=== PATIENT | male | born 1955 | race Caucasian/White ===

== ENCOUNTER 2023-01-05 08:15 | Outpatient (CLI) | payer MEDICARE, SELFPAY | END 2023-01-05 08:16 | disposition home or self-care (01) | LOC: NFLDREF 01-06 03:02 | PROVIDERS: PCP Family Medicine; Referring Provider Family Medicine; Visit Provider Family Medicine | DX: Z00.00 Encounter for general adult medical examination without abnormal findings (principal); E78.5 Hyperlipidemia, unspecified | CPT/HCPCS: 80053; 80061 ==

== ENCOUNTER 2023-09-08 13:32 | Outpatient (CLI) | payer MEDICARE, SELFPAY ==
--- NOTE | 2023-09-08 13:45 | CRLHL7_ITS ---
For Patients: As a result of the Century Cures Act, medical imaging exams and procedure reports are released immediately into your electronic medical record. You may view this report before your referring provider. If you have questions, please contact your health care provider. INDICATION: Hip pain. COMPARISON: None. TECHNIQUE: Coronal T1 and PD fat-sat axial T1 pelvis with axial, coronal and sagittal PD fat-sat small field right hip sequences. FINDINGS: Right hip: No fracture, bone lesion or avascular necrosis. Uniform cartilage. Shallow small subchondral cysts at the outer acetabular margin may be from occult fissuring. Synovial herniation pit anterior femoral head neck junction. Mild aspherical fullness at the head neck junction for CAM type impingement. Within limitations of a non arthrogram study no definitive labral tearing is identified. No periarticular fluid collection of significance. - Pelvis: Small synovial herniation pit on the left and mild CAM type impingement morphology similar to the right. Note significant degenerative or inflammatory change appreciated in the left hip. No fracture or bone lesion in the pelvis. Sacroiliac joints and the symphysis pubis are normal. Intact hamstrings. IMPRESSION: Mild CAM type impingement morphology bilaterally. 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 Dictated by Toni Lechuga MD @ 09/09/2023 4:25:50 PM (Electronically Signed)
== END 2023-09-08 13:33 | disposition home or self-care (01) ==
LOC: MRI 13:32
PROVIDERS: PCP Family Medicine; Visit Provider Family Medicine
DX: M25.551 Pain in right hip (principal); S76.311A Strain of muscle, fascia and tendon of the posterior muscle group at thigh level, right thigh, initial encounter; M79.604 Pain in right leg
CPT/HCPCS: 73721

== ENCOUNTER 2023-10-06 15:39 | Outpatient (CLI) | payer MEDICARE, SELFPAY ==
--- NOTE | 2023-10-06 16:00 | CRLHL7_ITS ---
For Patients: As a result of the Century Cures Act, medical imaging exams and procedure reports are released immediately into your electronic medical record. You may view this report before your referring provider. If you have questions, please contact your health care provider. INDICATION: right testicle pain x 1 month COMPARISON: none TECHNIQUE: Gamez scale imaging was performed of the scrotum. In addition color Doppler and spectral Doppler analysis was performed of the testes. FINDINGS: The testes demonstrate normal arterial and venous blood flow on color Doppler and spectral Doppler analysis. The testes have uniform echogenicity with no evidence of a suspicious mass or area of inflammation. The right testis measures 4.6 x 2.2 x 3.3 cm in size and the left testis measures 4.5 x 2.0 x 3.1 cm. The epididymis appears normal bilaterally. No varicocele. Small bilateral hydroceles noted. IMPRESSION: Small bilateral hydroceles. Normal testicles and epididymis. Dictated by Dain Suggs MD @ 10/07/2023 10:58:42 AM (Electronically Signed)
== END 2023-10-06 15:40 | disposition home or self-care (01) ==
LOC: US 15:40
PROVIDERS: PCP Family Medicine; Visit Provider Family Medicine
DX: N50.811 Right testicular pain (principal); N43.3 Hydrocele, unspecified
CPT/HCPCS: 76870; 93976

== ENCOUNTER 2023-12-03 10:42 | Outpatient (CLI) | payer MEDICARE, SELFPAY ==
--- NOTE | 2023-12-03 11:00 | CT_ITS ---
Patient: MESERET LEE Facility:?[facility] Patient ID:?[id number] Site Patient ID:?[id number]. Site :?[id number] Study:?CT-ST Neck W/ 83CC [id number]/22/2024 11:55:44 AM Ordering Physician:?Evelyn Alba Final Report: INDICATION Acute pharyngitis TECHNIQUE CT of the neck with [83] ml iodinated contrast agent. Coronal and sagittal reconstructions are included. COMPARISON None FINDINGS Bilateral enlargement and enhancement of the palatine tonsils suggestive of acute tonsillitis. No evidence for peritonsillar abscess. Beam hardening artifact overlying the left palatine tonsil from left sided dental hardware. Mild edema in the oropharyngeal soft tissues, left greater than right extending inferiorly to the level of the piriform recess. Few scattered shotty level 2 and level 3 lymph nodes, as well as left supraclavicular nodes without evidence for necrotic or suppurative lymphadenopathy, likely reactive in etiology. [The oral cavity, nasopharyngeal, and hypopharyngeal mucosal spaces are normal.] [No periapical dental disease.] [The supraglottic, glottic and infraglottic larynx are normal.] [The airway including the trachea is normal and is patent.] Incidental calculus in the right submandibular gland without acute inflammation. 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 Moderate disc degeneration at C5-6 and C6-7. Uncovertebral joint hypertrophy at C5-6 results in mild bilateral neural foramen narrowing. [No suspicious lytic or blastic osseous lesions.] Mild mucosal thickening in the maxillary sinuses. Rightward deviation of the septum with septal spur. [Visualized orbital and intracranial contents are normal.] [Supraclavicular regions, mediastinum and soft tissues of the imaged chest wall are normal.] [Visualized portions of the upper lungs are clear.] IMPRESSION 1. Bilateral enlargement and enhancement of the palatine tonsils suggestive of acute tonsillitis. Beam hardening artifact overlying the left palatine tonsil from left sided dental hardware without discrete abscess 2. Associated mild edema in the oropharyngeal soft tissues, left greater than right extending inferiorly to the level of the piriform recess likely due to infection and inflammation. 3. No abscess or drainable fluid collection. 4. Few scattered shotty level 2 and level 3 lymph nodes, as well as left supraclavicular nodes without evidence for necrotic or suppurative nodes, likely reactive in etiology. 5. Incidental calculus in the right submandibular gland without acute inflammation. 6. Mild mucosal thickening in the maxillary sinuses. 7. Mild cervical spondylosis. Please note that all CT scans at this facility use dose modulation, iterative reconstruction, and/or weight-based dosing when appropriate to reduce radiation dose to as low as reasonably achievable. Dictated by: Dain Villarreal MD @ 12/03/2023 12:52:04 Signed by:Tacos Villarreal MD @12/03/2023 12:52:04 PM (Electronic Signature)
[2023-12-03 11:22] LABS: Creatinine* 0.8 mg/dL (0.5-1.5); Estimated Glomerular Filt Rate 96 ml/min
== END 2023-12-03 10:43 | disposition home or self-care (01) ==
LOC: CT 10:42
PROVIDERS: PCP Family Medicine; Visit Provider Physician Assistant Medical
DX: J03.90 Acute tonsillitis, unspecified (principal); J32.0 Chronic maxillary sinusitis; M47.892 Other spondylosis, cervical region
CPT/HCPCS: 36415; 70491; 82565; 99283; 99284; J0295; Q9967

== ENCOUNTER 2023-12-03 12:24 | Emergency (ER) | payer MEDICARE, SELFPAY ==
[2023-12-03 12:28] VITALS: BP 136/75; PULSE 72; RESP 16; TEMP 36.5; O2SAT 97; BMI 24.2
--- NOTE | 2023-12-03 12:41 | ED.GENADULT ---
HPI - General Adult General Date Seen: 12/03/23 Chief complaint: Ear/Nose/Throat Problem Stated complaint: throat problems Time Seen by Provider: 12/03/23 12:29 Source: patient and other Mode of arrival: ambulatory Limitations: no limitations History of Present Illness HPI narrative: Patient is a 68-year-old male, generally healthy, who has had a sore throat primarily on the left side of his throat for about 5 days now. He was seen in clinic, had a CT scan and then referred here. He has not had fevers. He took some ibuprofen yesterday but nothing today. He is swallowing without too much difficulty although there is pain. Related Data Home Medications Medication Instructions Recorded Confirmed ascorbic acid (vitamin C) 500 mg 500 mg PO QDAY 01/08/23 12/03/23 tablet aspirin 81 mg tablet,delayed 81 mg PO DAILY 01/08/23 12/03/23 release fexofenadine-pseudoephedrine ER 1 tab PO QDAY 01/08/23 12/03/23 180 mg-240 mg tablet,ext.release 24 hr (Debbi-D 24 Hour) omega 1-hli-myn-fish oil 300 1 cap PO QDAY 01/08/23 12/03/23 mg-1,000 mg capsule (Fish Oil) Previous Rx's Medication Instructions Recorded atorvastatin 10 mg tablet 10 mg PO DAILY #90 tabs 01/08/23 metoprolol succinate 25 mg 25 mg PO DAILY #90 tabs 01/08/23 tablet,extended release 24 hr amoxicillin 875 mg-potassium 1 tab PO BID 10 days #20 tabs 12/03/23 clavulanate 125 mg tablet Allergies Allergy/AdvReac Type Severity Reaction Status Date / Time No Known Drug Allergies Allergy Verified 12/03/23 08:59 Review of Systems Status of ROS: Reports: 6 or more systems reviewed and unremarkable except as noted in History and below PFSH PFSH Family History Mother Alzheimers disease Father Atrial fibrillation Kidney disease Coronary artery disease High blood pressure Kidney malignancy Brother Pancreatic cancer Social History Narrative: Non-smoker Social alcohol use Smoking Status: Never smoker Do you use any of these nicotine containing products: None Second hand tobacco smoke exposure: No How often do you have a drink containing alcohol: never How often do you have six or more drinks on one occasion: Never AUDIT-C Alcohol total score: 0 Non-prescribed substance use: denies use Little interest or pleasure in doing things: not at all Feeling down, depressed, or hopeless: not at all service: No Exam Narrative: Exam Narrative: Vital signs as noted above. In general, an alert, well-appearing patient. Voice is normal. Head: Normocephalic, atraumatic. Eyes: Pupils are equal reactive. Extraocular movements are full. Conjunctivae are normal. ENT: Mucous membranes are moist. At this time, no trismus. Mild fullness of the left peritonsillar area compared to the right, airway is patent. Neck: Supple without lymphadenopathy. No stridor. Heart: Regular rate and rhythm. No murmur or rub. Lungs: Clear bilaterally. No increased work of breathing, crackles or wheezes. Neurologic: Patient is alert and oriented to person and place. Speech is fluent. Face is symmetric. Moves all extremities equally. Affect: Normal. Skin: Warm and dry. Well perfused. Const: Vital Signs, click to edit/add: Vital Signs - 24 hr 12/03/23 12:28 Temperature 97.7 F Pulse Rate [Right Pulse Oximeter] 72 Respiratory Rate 16 Blood Pressure [Ri ght Upper Arm] 136/75 Pulse Oximetry 97 Oxygen Delivery Me thod Room Air Documenting provider has reviewed patient's vital signs: yes Course Course ED Course: I did give Unasyn 1.[address] Nava's original instructions, but my exam really I felt reassured that this was not anything surgical. Patient appears really quite well. Review of his CT scan by myself shows no evidence of abscess, tonsils are somewhat prominent bilaterally left greater than right, but I do not see any fluid collections. Final radiology read is of bilateral tonsillitis without abscess. Reviewed with Dr. Mary who feels that outpatient antibiotics are reasonable. Reviewed reasons to return such as worsening pain, inability to swallow secretions, high fevers or other significant changes. If steadily worsening throughout it today and overnight, would recommend NPO status overnight and return to the ER tomorrow morning for re-evaluation when Dr. Mary is in house. Ibuprofen or Tylenol as needed for pain. Vital Signs Vital signs: Initial Vital Signs Temperature 97.7 F 12/03/23 12:28 Temperature Source Temporal Artery Scan 12/03/23 12:28 Pulse Rate 72 12/03/23 12:28 Pulse Rhythm Regular 12/03/23 12:28 Pulse Strength 3+ Normal 12/03/23 12:28 Respiratory Rate 16 12/03/23 12:28 Blood Pressure 136/75 12/03/23 12:28 Blood Pressure Mean 95 12/03/23 12:28 Blood Pressure Position Sitting 12/03/23 12:28 Pulse Oximetry 97 12/03/23 12:28 Oxygen Delivery Method Room Air 12/03/23 12:28 Vital Signs Temperature 97.7 F 12/03/23 12:28 Pulse Rate 72 12/03/23 12:28 Respiratory Rate 16 12/03/23 12:28 Blood Pressure 136/75 12/03/23 12:28 Pulse Oximetry 97 12/03/23 12:28 Oxygen Delivery Method Room Air 12/03/23 12:28 Temperature 97.7 F 12/03/23 12:28 Pulse Rate 72 12/03/23 12:28 Respiratory Rate 16 12/03/23 12:28 Blood Pressure 136/75 12/03/23 12:28 Pulse Oximetry 97 12/03/23 12:28 Oxygen Delivery Method Room Air 12/03/23 12:28 Medications Administered Medications: Discontinued Medications Generic Name Dose Route Start Last Admin Trade Name Freq PRN Reason Stop Dose Admin Ampicillin Sodium/Sulbactam 100 mls @ 200 mls/hr 12/03/23 12:34 12/03/23 13:05 Sodium 1.5 gm/ Sodium Chloride IVPB 12/03/23 12:35 200 mls/hr ONCE ONE Administration Discharge Plan Discharge Clinical Impression: Acute tonsillitis Patient Disposition: Home, Self-Care Condition: Stable Instructions: Tonsillitis (ED) Additional Instructions: Antibiotic as prescribed. If you find that you have worsening pain, swelling, difficulty swallowing or speaking, Dr. Mary and recommends that you have nothing to eat or drink overnight after midnight, and then return to the ER tomorrow morning. If you are gradually improving, you do not need to be seen again. Ibuprofen or Tylenol if needed for pain. Prescriptions: No Action aspirin 81 mg tablet,delayed release (DR/EC) 81 mg PO DAILY fexofenadine-pseudoephedrine [Debbi-D 24 Hour] 180-240 mg tablet extended release 24 hr 1 tab PO QDAY omega 1-tcr-jld-fish oil [Fish Oil] 300-1,000 mg capsule 1 cap PO QDAY ascorbic acid (vitamin C) 500 mg tablet 500 mg PO QDAY metoprolol succinate 25 mg tablet extended release 24 hr 25 mg PO DAILY Qty: 90 3RF atorvastatin 10 mg tablet 10 mg PO DAILY Qty: 90 3RF amoxicillin-pot clavulanate 875-125 mg tablet 1 tab PO BID 10 Days Qty: 20 0RF Rx Instructions: 1 tablet twice daily for peritonsillar cellulitis Follow Up/Referrals: Nicole Humphries DO [Primary Care Provider] - Stand Alone Forms: [facility] Info Instructions
[2023-12-03] MEDS: AMPICILLIN/SULBACTAM 1.5 GM in 0.9 % SODIUM CHLORIDE Mini-bag 100 ML IVPB (13:05)
== END 2023-12-03 13:44 | disposition home or self-care (01) ==
PROVIDERS: Emergency Provider Emergency Medicine; PCP Family Medicine
DX: J03.90 Acute tonsillitis, unspecified (principal)
CPT/HCPCS: 96374; 99284; J0295

== ENCOUNTER 2024-12-27 08:17 | Outpatient (CLI) | payer MEDICARE, SELFPAY ==
[2024-12-27 09:27] LABS: Albumin* 4.3 g/dL (3.3-5.0); Chloride* 104 mmol/L (96-114); Potassium* 4.6 mmol/L (3.6-5.1); Sodium* 137 mmol/L (135-149)
[2024-12-27 09:29] LABS: Cholesterol* 150 mg/dL (90-199)
[2024-12-27 09:30] LABS: Alanine Aminotransferase* 42 U/L (4-50); Alkaline Phosphatase* 51 U/L (40-150); Anion Gap 5 mEq/L (7-15); Aspartate Amino Transferase* 37 U/L (12-35); Bilirubin Total* 0.6 mg/dL (0.1-1.5); Blood Urea Nitrogen* 13 mg/dL (7-30); Calcium* 9.1 mg/dL (8.4-10.6); Carbon Dioxide* 28 mmol/L (20-32); Creatinine* 0.9 mg/dL (0.5-1.5); Estimated Glomerular Filt Rate 92 ml/min; Glucose* 107 mg/dL (60-115); Total Protein* 6.9 g/dL (6.0-8.3); Triglycerides* 58 mg/dL (40-149)
[2024-12-27 09:31] LABS: HDL Cholesterol* 60 mg/dL (>=40); LDL Cholesterol Calculated 78 mg/dL (<100)
--- NOTE | 2024-12-27 09:52 | P.ANES_ITS ---
Anesthesia Charges Start Date/Time Anesthesia Start Date: 12/27/24 Anesthesia Start Time: 09:08 Stop Date/Time Anesthesia Stop Date: 12/27/24 Anesthesia Stop Time: 09:48 Summary Extremes of Age - Over 70 or under 1: ATTENDING AMBULATORY CARE Coding CPT Codes CPT Codes: DEBBIE LWR INTST NDSC NOS - 77459 ([id number]) P2 - PATIENT W/MILD SYST DISEASE, QK - VAT OPERATOR 2-4 CNCRNT ANEBrielle PROC, QX - ATTENDING AMBULATORY CARE SVC W/ MD MED DIRECTION Additional Codes: Summary - Extremes of Age - Over 70 or under 1: ATTENDING AMBULATORY CARE ([id number])
--- NOTE | 2024-12-27 09:52 | W.ANESCHARGE ---
Anesthesia Charges Start Date/Time Anesthesia Start Date: 12/27/24 Anesthesia Start Time: 09:08 Stop Date/Time Anesthesia Stop Date: 12/27/24 Anesthesia Stop Time: 09:48 Summary Extremes of Age - Over 70 or under 1: RECORDS MANAGEMENT ASSOCIATE Coding CPT Codes CPT Codes: DEBBIE LWR INTST NDSC NOS - 46166 ([id number]) P2 - PATIENT W/MILD SYST DISEASE, QK - UTILIZATION ENGINEER 2-4 CNCRNT ANEBrielle PROC, QX - RECORDS MANAGEMENT ASSOCIATE SVC W/ MD MED DIRECTION Additional Codes: Summary - Extremes of Age - Over 70 or under 1: RECORDS MANAGEMENT ASSOCIATE ([id number])
--- NOTE | 2024-12-27 09:56 | P.ANES_ITS ---
Anesthesia Charges Start Date/Time Anesthesia Start Date: 12/27/24 Anesthesia Start Time: 09:08 Stop Date/Time Anesthesia Stop Date: 12/27/24 Anesthesia Stop Time: 09:48 Summary Extremes of Age - Over 70 or under 1: MDA Coding CPT Codes CPT Codes: ANES LWR INTST NDSC NOS - 61341 ([id number]) P2 - PATIENT W/MILD SYST DISEASE, QK - HANDLE ATTACHER 2-4 CNCRNT ANES PROC, QX - PILOT TEACHER SVC W/ MD MED DIRECTION Additional Codes: Summary - Extremes of Age - Over 70 or under 1: MDA ([id number])
--- NOTE | 2024-12-27 09:56 | W.ANESCHARGE ---
Anesthesia Charges Start Date/Time Anesthesia Start Date: 12/27/24 Anesthesia Start Time: 09:08 Stop Date/Time Anesthesia Stop Date: 12/27/24 Anesthesia Stop Time: 09:48 Summary Extremes of Age - Over 70 or under 1: MDA Coding CPT Codes CPT Codes: ANES LWR INTST NDSC NOS - 61687 ([id number]) P2 - PATIENT W/MILD SYST DISEASE, QK - TEACHERS AIDE 2-4 CNCRNT ANES PROC, QX - PERL SOFTWARE ENGINEER SVC W/ MD MED DIRECTION Additional Codes: Summary - Extremes of Age - Over 70 or under 1: MDA ([id number])
[2024-12-27 10:01] LABS: PSA Screen* 1.08 ng/mL (0.10-4.00)
== END 2024-12-27 08:18 | disposition home or self-care (01) ==
LOC: OP CLINIC 08:18
PROVIDERS: Nurse Practitioner Family; Visit Provider Surgery
DX: Z12.11 Encounter for screening for malignant neoplasm of colon (principal); D12.1 Benign neoplasm of appendix; D12.2 Benign neoplasm of ascending colon; D12.3 Benign neoplasm of transverse colon; D12.4 Benign neoplasm of descending colon; D12.5 Benign neoplasm of sigmoid colon; D12.8 Benign neoplasm of rectum; K64.8 Other hemorrhoids; K57.30 Diverticulosis of large intestine without perforation or abscess without bleeding; E78.5 Hyperlipidemia, unspecified; R00.2 Palpitations; Z12.5 Encounter for screening for malignant neoplasm of prostate
CPT/HCPCS: 00811; 36415; 45385; 80053; 80061; 99100; G0103; J2704

== ENCOUNTER 2025-05-31 09:45 | Outpatient (RCR) | payer MEDICARE, SELFPAY ==
--- NOTE | 2025-04-17 12:52 | PT.OPEX ---
PT [facility] Outpatient Eval PT [facility] Outpatient Eval Start: 04/17/25 09:12 Freq: Status: Active Protocol: Document 04/17/25 09:12 AUDREY (Rec: 04/17/25 12:51 AUDREY [id number]) E-signed By Mayr Albert PT Physical Therapy Outpatient Evaluation Insurance Information Recert Due Date 07/15/25 Medical Diagnosis CERVICAL DDD Treating Diagnosis CERVICAL PAIN Imaging Report XRAY 03/27/25: Information Mild degenerative disc disease C5-6 and C6-7. Referring MD HAMLET POLO ARMATURE BANDER Subjective Preferred Name MARY Subjective PATIENT REPORTS LONG H/O UPPER TRAP TIGHTNESS WITH TrP' S THAT HE OFTEN APPLIES DEEP PRESSURE TO HELP LOOSEN. HE HAS RECENTLY (~2MO) EXPERIENCED PAIN WHEN AT WORK HE REACHES FWD. 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 HE DOES NOT MENTION ANY PAIN IN HIS NECK OR NUMBNESS AND TINGLING TODAY ASIDE FROM WHEN HE SLEEPS WITH BENT ELBOWS HE EXPERIENCES NUMBNESS AND TINGLING IN HIS HANDS. THIS CORRECTED BY EXTENDING HIS ARMS. HE IS HOPING TO RESOLVE HIS PAIN AND LEARN OUT TO PREVENT FUTURE ISSUES. 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 Precautions Treatment PMHX: H/O RIGHT HAMSTRING TEAR, CERVICAL DDD, HLD, HTN Precautions/ Contraindications Therapy Limitations/ Not Limited Systems Review Objective Other/Pertinent SPINAL ALIGNMENT/POSTURE: MIN ROUNDED SHOULDERS Objective CERVICAL ROM Flexion: WNL Extension: WFL Right Rotation: WFL Left Rotation: WNL Right side bend: WFL Left Side bend: WNL SHOULDER AROM : FULL A(P)ROM PAINFREE NECK/SHOULDER MMT: Deep neck flexor endurance test: Shoulder shrug: R 5/5 L5 /5 Shoulder flexion: R 5/5 L 5/5 Shoulder abduction: R 5/5 L 5/5 Shoulder External Rotation: R5 /5 L5 /5 Shoulder Internal Rotation: R 5/5 L 5/5 Elbow Flexion: R 5/5 L 5/5 Elbow Ext: R 5/5 L5 /5 Thumb Ext: R 5/5 L 5/5 FInger Abd: R 5/5 L 5/5 SPECIAL TEST Spurlings Test: UNREMARKABLE Cervical distraction test: UNREMARKABLE Neural Tension Test(Median/Ulnar/Radial): UNREMARKABLE Bakody Sign(C4-C6 Radiculopathy): UNREMARKABLE Cervical rotation/Lateral flexion Test: UNREMARKABLE Zaynab Test: UNREMARKABLE Vertebral Artery Test: (-) Shoulder impingement HawkinsKennedy Test: (+) Neer Test: (+) Elise Test: (+) SPEEDS (+) JOINT MOBILITY/PALPATION: NOTED DECREASED CERVICAL SEGMENTAL MOBILITY RIGHT>LEFT AND MOST NOTICEABLE WITH SIDE GLIDE; PATIENT DENIED ANY POINT TENDERNESS ALONG CERVICAL SPINE. OF NOTE, POINT TENDER ABOUT THE BICIPITAL GROOVE AND INTO PROXIMAL BICEPS; LASTLY, PALPABLE TrP ABOUT THE LEFT >RIGHT LEVATOR SCAPULAE WITH CREPITUS TX: DTM TO LEFT>RIGHT LEVATOR SCAP, UPPER AND MIDDLE TRAP IADTM TO SAME CUPPING TO SAME STDG TB (BLK) ROW X 10 HOLD 2-3 SEC STDG TB (GREEN) B'ER X 10 HOLD 2-3 STDG TB (BLUE) L IR X 10 HOLD 2-3 SEC Functional Test [id number] Performed & Score Assessment Assessment/ PATIENT IS A 70 YO REFERRED BY HAMLET JENSEN CNP TO EVAL Impression AND TREAT CERVICAL DDD. PATIENT DEMONSTRATES SIGNS AND SYMPTOMS CONSISTENT WITH LEFT SHOULDER BICEPS TENDONITIS AND SHOULDER IMPINGEMENT CONTRIBUTING TO THEIR FUNCTIONAL IMPAIRMENTS OF PAIN WITH USING HIS BOBCAT AT WORK, AND REPETITIVE REACHING FORWARD HE APPROACHES 90 DEGREES . PATIENT DESCRIBES THE FOLLOWING TRIGGERS WORKING WITH HIS HEAVY MACHINERY WHICH ARE ALLEVIATED BY REST. CLINICALLY, XRAYS REVEAL MILD CERVICAL DDD AND C5-6 AND C6-7 WITH SPONDYLOSIS. HE DENIES ANY NUMBNESS AND TINGLING EXCEPT INTERMITTENTLY WHEN SLEEPING AND HAND POSITIONING. PATIENT HAS NOTABLE OBJECTIVE FINDING INCLUDING +SPEEDS, POINT TENDER ABOUT THE BICIPITAL GROOVE, (+) MERRILL JOHN TEST, (+) NEERS TEST, (+) ELISE TEST, (+) SPEEDS, AND UNREMARKABLE CERVICAL SCREENING WHICH ALL ARE CONTRIBUTING TO THE CLINICAL IMPRESSION. PATIENT IS A GOOD CANDIDATE FOR SKILLED PHYSICAL THERAPY TO ADDRESS AFOREMENTIONED DEFICITS ABOVE IN ORDER TO RETURN TO ASYMPTOMATIC STATUS AND RETURN TO UNRESTRICTED MVMTS. INTERVENTION IS NECESSARY BY WAY OF THERAPEUTIC EXERCISE, MANUAL THERAPY, NEUROMUSCULAR RE-EDUCATION, STABILIZATION/PROPRIOCEPTION, MODALITIES FOR SYMPTOM MGMT, PATIENT EDUCATION, DRY NEEDLING PLEASE REFER TO APPROPRIATE SECTION WITHIN THIS EVALUATION FOR COMPLETE LIST OF GOALS AND PLAN OF CARE. DISCHARGE PLAN AND CRITERIA IS FOR PATIENT TO ACHIEVE THE GOALS LISTED BELOW OR UNTIL MAX POTENTIAL MET. PATIENT VERBALIZED UNDERSTANDING AND AGREEABLE TO POC, FREQ, AND GOALS ESTABLISHED. Primary Functional REACHING >90, SUSTAINED FWD ARM ELEVATION Limitations Plan of Care Rehabilitation Good Potential Physical Therapy IN 6-10 VISITS: Goals 1. DECREASE SHOULDER PAIN TO </2-3/10 WITH DAILY ACTIVITIES AND WITH THE PROGRESSION OF HIS HEP OVER THE NEXT 4 WEEKS. 2. DEMONSTRATE PAIN FREE AROM OVER THE NEXT 4-6 WEEKS DURING DAILY ACTIVITIES WITHOUT FLARE UPS OF SYMPTOMS. 3. PATIENT WILL VERBALIZED UNDERSTANDING OF POSTURING AND BODY MECHANICS IT RELATES TO DECREASING STRESS, IMPROVED SHOULDER MECHANICS, AND DECREASED SYMPTOMS. 4.PATIENT WILL DEMONSTRATES IMPROVED STRENGTH TO FACILITATE RETURN TO DAILY ACTIVITIES WITH LESS SYMPTOMS AND DECREASED OPPORTUNITIES FOR FLARE UP OF PAIN 5. PATIENT WILL BE INDEPENDENT WITH HIS INDIVIDUALIZED AND COMPREHENSIVE HEP WITHIN THE NEXT 6-8 WEEKS FOR PROGRESSION TWD ABOVE MENTION GOALS, CONTINUED MGMT OF SYMPTOMS, AND ONGOING SELF IMPROVEMENTS IN POSTURING/ STRENGTH/STABILIZATION. Coordination/ Referral Source Communication With Treatment Plan/ Dry Needling,Electrical Stimulation,Heat,Ice/Cold/ Direct Interventions Vasopneumatic,Joint Mobilization,Manual Therapy, Neuromuscular Re-ed,Self-Care/Home Management, Therapeutic Activities,Therapeutic Exercises,Ultrasound Frequency/Duration 1X/WK Patient Will Be Completion of LTG(s),Independent w/HEP Discharged From Therapy Evaluation Billing Untimed Code 20 Treatment Minutes PT Eval No Charge No Complexity Low Certification Information Initial 04/17/25 Certification Date Ending Certification 07/15/25 Date Provider Signature Yes Required Provider Signature POC & Medical Necessity Shows Agreement With Physician NPI Number Write NPI# Here Physician Comment/ : Change Physician Signature Please Sign/Date Here & Date Requested
== END 2025-06-20 17:25 | disposition home or self-care (01) ==
PROVIDERS: PCP Nurse Practitioner Family; Visit Provider Nurse Practitioner Family
DX: M50.30 Other cervical disc degeneration, unspecified cervical region (principal); Z51.89 Encounter for other specified aftercare
CPT/HCPCS: 97110; 97112; 97140; 97161

== ENCOUNTER 2025-08-22 07:58 | Outpatient (CLI) | payer MEDICARE, SELFPAY ==
--- NOTE | 2025-08-22 08:15 | MR_ITS ---
EXAM: MRI EXAMINATION OF THE LEFT SHOULDER CLINICAL INFORMATION: Left shoulder pain. No history of surgery to this area. TECHNICAL INFORMATION: Coronal STIR as well as axial, sagittal and coronal PD and T2-weighted images acquired. No prior studies for comparison. INTERPRETATION: Bones: There is no Hill-Sachs impaction deformity. No other occult fracture or osseous contusion. No other bone marrow edema pattern. Rotator Cuff: Series 9 image 4 as well as series 5 image 18 demonstrate a 0.8 cm AP full-thickness tear involving the mid fibers of the supraspinatus tendon insertion. There is no evidence for tendon retraction. There is no evidence for muscle belly atrophy. Mild infraspinatus tendinopathy. The teres minor tendon is intact. There is an 8 mm craniocaudal segment of poorly defined partial thickness tear involving the superior subscapularis tendon. The bony coracohumeral interval is measuring 7 mm. There is a moderate appearance of subcoracoid bursitis. No evidence for rotator cuff muscle belly atrophy. Coracoacromial arch: There is no discrete subacromial osseous spur. The bony acromiohumeral interval is measuring 6 mm. There is no thickening identified of the coracoacromial ligament. 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 No deformity of the underlying supraspinatus tendon. Biceps tendon: There is medial subluxation of the long head biceps tendon from the far superior bicipital groove. Increased signal intensity and thickening to indicate moderate changes of tendinopathy. Glenohumeral joint and labrum: There is a small to moderate glenohumeral joint effusion. No discrete loose body within the joint. Thinning of the articular cartilage without full thickness loss along the superior aspect of the humeral head. Additional thinning of the articular cartilage without full-thickness loss along the superior glenoid. There is blunting and mild tearing involving the superior aspect of the labrum. No other definite evidence for labral tear. No discrete paralabral cyst is identified. CONCLUSION: 1. There is a small full-thickness tear involving the mid supraspinatus tendon insertion without tendon retraction or muscle belly atrophy. 2. There is a small segment of poorly defined partial tear involving the superior subscapularis tendon. Borderline narrowed coracohumeral interval with moderate subcoracoid bursitis. 3. Biceps areli lesion with medial subluxation of the long head biceps tendon from the superior bicipital. There are moderate changes of tendinopathy. 4. 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 5. Patchy chondromalacia involving the glenohumeral joint without evidence for a more focal defect or full-thickness cartilage loss. There is a small to moderate joint effusion. KES Electronically signed on 08/22/2025 1:11:00 PM by Morteza Hopkins M.D.
== END 2025-08-22 07:59 | disposition home or self-care (01) ==
LOC: MRI 07:59
PROVIDERS: PCP Nurse Practitioner Family; Visit Provider Orthopaedic Surgery Sports Medicine
DX: M25.512 Pain in left shoulder (principal); M75.102 Unspecified rotator cuff tear or rupture of left shoulder, not specified as traumatic; M75.52 Bursitis of left shoulder; M19.012 Primary osteoarthritis, left shoulder; M94.212 Chondromalacia, left shoulder
CPT/HCPCS: 73221